=== PATIENT | female | born 1945 | race Caucasian/White ===

== ENCOUNTER → 2021-01-29 | Outpatient (CLI) | payer OTHER ==
[~2021-01-29] MED LIST: ALBUTEROL2.5 MG/3 M INH; ALL DAY ALLERGY10 MG PO; BYDUREON2 MG SC; COLACE100 MG PO; DOCUSATE PO; ECOTRIN81 MG PO; ELIQUIS 2.5 MG2.5 MG PO; EPIPEN 2-P0.3 MG/0.3 SC; FLEXERIL 10 MG10 MG PO; GLUCOTROL 10 MG10 MG PO; IMDUR ER TAB 3030 MG PO; LOPRESSOR 25 MG25 MG PO; LOVAZA1 GM PO; METFORMIN HCL1000 MG PO; MOBIC15 MG PO; NITROSTAT0.4 MG SL; PRAVACHOL20 MG PO; PROBIOTIC1 EAC3 PO; PROTONIX40 MG PO; SINGULAIR10 MG PO; VITAMIN B-121000 MCG PO; VITAMIN B-12500 MCG PO; VITAMIN D31000 UNI1 PO; VITAMIN D32000 UNI1 PO; ZYRTEC10 MG PO
== END ==
LOC: HEART 5 14:28
DX: M79.609 Pain in unspecified limb (principal)